=== PATIENT | female | born 1995 | race Caucasian/White ===

== ENCOUNTER 2019-01-20 03:03 | Emergency (ER) ==
[2019-01-20 03:19] VITALS: BP 134/72; TEMP 98.3; BMI 21.1
--- NOTE | 2019-01-20 04:01 | ED.PDOC ---
General ED Provider: Dr. NICOLÁS FRANCO Chief Complaint: Stated Complaint: 23 y old patient state that today,or actually yesterday she passed a "big chunk" of product of conception and she is affirmative that she miscarried,She says that she had a miscarriage before and she knows what she is talking about.She knows that rn hospice folllow up is needed for possible D&C.Her bleed is not heavy and she says that she can control it as it subsides.Patient was not aware of limitations in [facility] and rn hospice here.She sources her OB care at [facility]. Time Seen by Physician: 03:05 Mode of Arrival: Walk-In Information Source: Patient Exam Limitations: No limitations Nursing and Triage Documentation Reviewed and Agree: Yes Does patient meet sepsis criteria?: No System Inflammatory Response Syndrome: Not Applicable Sepsis Protocol: For patient's 13 years and over: Temp is 96.8 and below OR 101 and greater Pulse >90 BPM Resp >20/minute Acutely Altered Mental Status Are patient's symptoms suggestive of a new infection, such as: -Pneumonia -Skin, Soft Tissue -Endocarditis -UTI -Bone, Joint Infection -Implantable Device -Acute Abdominal Infection -Wound Infection -Meningitis -Blood Stream Catheter Infection -Unknown [employer] Complaint Exam - Vaginal Bleeding Complaint/Exam Onset/Duration: within 24 hours Symptoms Are: Still present Timing: Intermittent Initial Severity: Moderate Current Severity: Mild Character: Reports: Clots Aggravating: Reports: Activity Alleviating: Reports: Rest Associated Signs and Symptoms: Reports: Lightheadedness Related History: Reports: Similar episode : 5 Para: 2 Ectopic Risk Factors: Reports: None Placental Abruption Risk Factors: Reports: Maternal hypertension Patient Rh Status: Unknown Related Surgical History: Reports: None Abdominal Findings: Present: None, Other Differential Diagnoses: Incomplete AB - Labor/Delivery Complaint/Exam Expected Date of Delivery: 05/22/19 Review of Systems - Review Of Systems Constitutional: Reports: No symptoms Eyes: Reports: No symptoms Ears, Nose, Mouth, Throat: Reports: No symptoms Respiratory: Reports: No symptoms Cardiac: Reports: No symptoms GI: Reports: No symptoms : Reports: No symptoms Musculoskeletal: Reports: No symptoms Skin: Reports: No symptoms Neurological: Reports: No symptoms Endocrine: Reports: No symptoms Hematologic/Lymphatic: Reports: No symptoms All Other Systems: Reviewed and Negative Past Medical History - Past Medical History Endocrine: Reports: None Cardiovascular: Reports: None Respiratory: Reports: None Hematological: Reports: None Gastrointestinal: Reports: None Genitourinary: Reports: None Neuro/Psych: Reports: None Musculoskeletal: Reports: None Cancer: Reports: None Last Menstrual Period: AUG 2018 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 - Surgical History General Surgical History: Reports: Unknown - Family History Family History: Reports: Unknown - Social History Smoking Status: Current every day smoker, Heavy tobacco smoker Hx Substance Use: Yes (METH) Alcohol Screening: None - Immunizations Tetanus Shot up to Date: (UNKNOWN) Physical Exam - Physical Exam Appearance: Well-appearing Ill-appearing: None Pain Distress: None Eyes: CARMEN ENT: Ears normal, Rhinorrhea Neck: Supple Respiratory: Airway patent Cardiovascular: RRR GI/: Soft Musculoskeletal: Normal strength Skin: Warm Neurological: Sensation intact Psychiatric: Affect appropriate (patient left AMA before testing completed) Critical Care Note - Critical Care Note Total Time (mins): 0 Course - Course Orders, Labs, Meds: Orders Category Date Time Status ED IV/MEDIPORT/POWERPORT .ONCE EMERGENCY 01/20/19 04:04 Active 0.9 % Sodium Chloride [Saline Flush] MEDS 01/20/19 04:04 Discontinued 1 syr IVF PRN PRN Sodium Chloride 0.9% [Sodium Chloride] 1,000 ml MEDS 01/20/19 04:05 Discontinued IV BOLUS Medications Discontinued Medications Generic Name Dose Route Start Last Admin Trade Name Freq PRN Reason Stop Dose Admin Sodium Chloride 1,000 mls @ 1,000 mls/hr 01/20/19 04:05 Sodium Chloride IV 01/20/19 05:04 BOLUS STA Sodium Chloride 1 syr 01/20/19 04:04 Saline Flush IVF PRN PRN To flush IV Vital Signs: Temp Pulse Resp BP Pulse Ox 01/20/19 03:04 98.3 F 109 H 20 134/72 99 Departure - Departure Time of Disposition: 04:17 Disposition: AMA Discharge Problem: Incomplete miscarriage Instructions: Anemia (ED) Condition: Good Pt referred to PMD for follow-up: Yes IPMP verified?: Yes Allergies/Adverse Reactions: Allergies No Known Allergies Allergy (Verified 01/20/19 03:19) Home Medications: Ambulatory Orders 1 [No Reported Medications] 04/03/14 Transfer Form Completed: Yes Disposition Discussed With: Family
[2019-01-20] MEDS ORDERED: SODIUM CHLORIDE 1,000 ML IV STA (04:05)
== END 2019-01-20 04:10 | disposition left against medical advice (07) ==
LOC: ED 03:03
DX: O03.4 Incomplete spontaneous abortion without complication (principal); R42 Dizziness and giddiness; F17.210 Nicotine dependence, cigarettes, uncomplicated; O03.9 Complete or unspecified spontaneous abortion without complication
CPT/HCPCS: 99284

== ENCOUNTER 2019-01-20 11:41 | Outpatient (CLI) ==
[2019-01-20 03:19] VITALS: BMI 21.1
--- NOTE | 2019-01-20 14:00 | US ---
EXAM: Pelvic ultrasound HISTORY: Complete or unspecified spontaneous without complication COMPARISON: None TECHNIQUE: Pelvic ultrasound was performed transvaginally. FINDINGS: There is a single intrauterine with pole, with the femur length of 2.3 cm, projecting to 17 weeks 0 days. No amniotic fluid. No heart tones. Right and left ovary not visualized. IMPRESSION: Findings consistent with failed intrauterine / demise. Findings called to Dr. Amin 1:54 p.m. 01/20/2019.
== END 2019-01-20 11:42 | disposition home or self-care (01) ==
LOC: RAD 11:41
PROVIDERS: ATTEND Family Medicine
DX: O03.9 Complete or unspecified spontaneous abortion without complication (principal)

== ENCOUNTER 2019-03-16 20:26 | Emergency (ER) ==
[2019-03-16 20:30] VITALS: BP 131/87; TEMP 97.7; BMI 21.5
[2019-03-16] MEDS ORDERED: LIDOCAINE HCL 1% SDV SUBCUT STA ×2 (20:42→20:43)
--- NOTE | 2019-03-16 21:01 | ED.PDOC ---
General ED Provider: Dr. FAHEEM GARCIA-ER Chief Complaint: Laceration Stated Complaint: i cut my wrist on a window while opening Time Seen by Physician: 20:30 Mode of Arrival: Walk-In Information Source: Patient Exam Limitations: No limitations Nursing and Triage Documentation Reviewed and Agree: Yes Does patient meet sepsis criteria?: No System Inflammatory Response Syndrome: Not Applicable Sepsis Protocol: For patient's 13 years and over: Temp is 96.8 and below OR 101 and greater Pulse >90 BPM Resp >20/minute Acutely Altered Mental Status Are patient's symptoms suggestive of a new infection, such as: -Pneumonia -Skin, Soft Tissue -Endocarditis -UTI -Bone, Joint Infection -Implantable Device -Acute Abdominal Infection -Wound Infection -Meningitis -Blood Stream Catheter Infection -Unknown Skin Complaint Exam - Lac/Torso/Upper Ext. Complaint/Exam Location of Injury: Left, Forearm Mechanism of Injury: Laceration Onset/Duration: one h9our Symptoms Are: Still present Initial Severity: Mild Current Severity: Mild Aggravating: Movement Alleviating: Compression Associated Signs and Symptoms: Denies: Fever, Chills, Erythema, Numbness, Tingling Differential Diagnoses: Laceration Review of Systems - Review Of Systems Constitutional: Reports: No symptoms Eyes: Reports: No symptoms Ears, Nose, Mouth, Throat: Reports: No symptoms Respiratory: Reports: No symptoms Cardiac: Reports: No symptoms GI: Reports: No symptoms : Reports: No symptoms Musculoskeletal: Reports: No symptoms Skin: Reports: No symptoms Neurological: Reports: No symptoms Endocrine: Reports: No symptoms Hematologic/Lymphatic: Reports: No symptoms All Other Systems: Reviewed and Negative Past Medical History - Past Medical History Previously Healthy: No Endocrine: Reports: None Cardiovascular: Reports: None Respiratory: Reports: None Hematological: Reports: None Gastrointestinal: Reports: None Genitourinary: Reports: None Neuro/Psych: Reports: None Musculoskeletal: Reports: Unknown Cancer: Reports: None Last Menstrual Period: PRESENTLY 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 - Surgical History General Surgical History: Reports: Unknown - Family History Family History: Reports: Unknown - Social History Smoking Status: Former smoker Hx Substance Use: Yes (METH) Alcohol Screening: None - Immunizations Tetanus Shot up to Date: (UNKNOWN) Physical Exam - Physical Exam Appearance: Well-appearing, No pain distress, Well-nourished Pain Distress: Mild Eyes: CARMEN, EOMI, Conjunctiva clear ENT: Ears normal, Nose normal, Oropharynx normal Neck: Supple Respiratory: Airway patent Cardiovascular: RRR, Pulses normal, No rub, No murmur GI/: Soft, Nontender, No masses, Bowel sounds normal, No Organomegaly Musculoskeletal: Normal strength, ROM intact, No edema, No calf tenderness Skin: Warm, Dry, Normal color Neurological: Sensation intact, Motor intact, Reflexes intact, Cranial nerves intact, Alert, Oriented Psychiatric: Affect appropriate, Mood appropriate Procedures - Laceration/Wound Repair No standard instances Wound Description: Linear Wound Length (cm): 5cm Wound Explored: Clean Wound Irrigated: Yes Wound Prep: Hibiclens Anesthesia: Lidocaine Wound Repaired With: Sutures Suture Size and Type: 4.0 prolene Number of Sutures: 6 Layer Closure?: No Sterile Dressing Applied?: Yes Splint Applied?: No Sling Applied?: No Critical Care Note - Critical Care Note Total Time (mins): 0 Course - Course Orders, Labs, Meds: Orders Category Date Time Status Lidocaine HCl/Pf [Lidocaine HCl 1% Sdv] MEDS 03/16/19 20:42 Discontinued 5 ml SUBCUT ONCE STA Lidocaine HCl/Pf [Lidocaine HCl 1% Sdv] MEDS 03/16/19 20:43 Discontinued 5 ml SUBCUT ONCE STA Medications Discontinued Medications Generic Name Dose Route Start Last Admin Trade Name Marianoq PRN Reason Stop Dose Admin Lidocaine HCl 5 ml 03/16/19 20:42 Lidocaine Hcl 1% Sdv SUBCUT 03/16/19 20:43 ONCE STA Lidocaine HCl 5 ml 03/16/19 20:43 Lidocaine Hcl 1% Sdv SUBCUT 03/16/19 20:44 ONCE STA Vital Signs: Temp Pulse Resp BP Pulse Ox 03/16/19 20:26 97.7 F 139 H 24 131/87 97 Departure - Departure Time of Disposition: 21:01 Disposition: HOME SELF-CARE Discharge Problem: Laceration - injury Instructions: Laceration (ED), Care For Your Stitches (ED) Condition: Good Pt referred to PMD for follow-up: Yes IPMP verified?: No Additional Instructions: keep clean and dry---sutures out in 7 days---return if any signs of infection Allergies/Adverse Reactions: Allergies No Known Allergies Allergy (Verified 03/16/19 20:30) Home Medications: Ambulatory Orders Topiramate [Topamax] 50 mg PO BEDTIME 03/16/19 Trazodone HCl 50 mg PO BEDTIME 03/16/19 Varenicline Tartrate [Chantix] 1 mg PO BID 03/16/19 Disposition Discussed With: Patient, Family
== END 2019-03-16 21:04 | disposition home or self-care (01) ==
LOC: ED 20:26
DX: S61.512A Laceration without foreign body of left wrist, initial encounter (principal); W25.XXXA Contact with sharp glass, initial encounter
CPT/HCPCS: 96372; 99283